=== PATIENT | male | born 1985 | race Two or more races ===

== ENCOUNTER 2024-05-17 11:10 | Emergency (ER) | payer OTHER ==
[~2024-05-17] VITALS: Ht 185.4 cm; Wt 107.5 kg
== END 2024-05-17 12:31 | disposition home or self-care (01) ==
LOC: ER 11:11
DX: S60.572A Other superficial bite of hand of left hand, initial encounter (principal); W50.3XXA Accidental bite by another person, initial encounter; Y93.89 Activity, other specified; Y92.69 Other specified industrial and construction area as the place of occurrence of the external cause; Y99.8 Other external cause status; Z12.83 Encounter for screening for malignant neoplasm of skin